=== PATIENT | female | born 1970 | race Caucasian/White ===

== ENCOUNTER 2020-06-19 09:33 | Emergency (ER) | payer OTHER ==
--- NOTE | 2020-06-19 10:12 | TELE ---
HPI Do you have fever,cough or shortness of breath?: Yes - General Reason For Visit: COVID 19 TEST Time Seen by Provider: 06/19/20 10:10 History Source: Patient Exam Limitations: Clinical Condition - History of Present Illness Timing/Duration: unsure Associated Symptoms: reports: denies symptoms 06/19/20 10:10 Patient with past medical history of cataract [facility] for cardiac surgery in 4 days. Patient reports she needs a complete test done before surgery. Denies any symptoms. Denies fever, chills, cough, shortness of breath. Denies any other complaints Review of Systems - Review of Systems Able to Perform ROS?: Yes Constitutional: No: Chills, Fever, Malaise HEENTM: No: Symptoms Reported, See HPI, Eye Pain, Blurred Vision, Tearing, Recent change in vision, Double Vision, Cataracts, Ear Pain, Ocular Prothesis, Ear Discharge, Nose Pain, Nose Congestion, Tinnitus, Nose Bleeding, Hearing Loss, Throat Pain, Throat Swelling, Mouth Pain, Dental Problems, Difficulty Swallowing, Mouth Swelling, Other Respiratory: No: Symptoms reported, See HPI, Cough, Orthopnea, Shortness of Breath, SOB with Exertion, SOB at Rest, Stridor, Wheezing, Productive cough, Hemoptysis, Other Cardiac (ROS): No: Symptoms Reported, See HPI, Chest Pain, Edema, Irregular Heart Rate, Lightheadedness, Palpitations, Syncope, Chest Tightness, Other ABD/GI: No: Symptoms Reported, Nausea, Vomiting All Other Systems: Reviewed and Negative *Physical Exam - Physical Exam General Appearance: Yes: Nourished, Appropriately Dressed. No: Apparent Distress HEENT: positive: Normal ENT Inspection Respiratory/Chest: negative: Respiratory Distress, Accessory Muscle Use Musculoskeletal: positive: Normal Inspection Extremity: positive: Normal Inspection, Normal Range of Motion Integumentary: positive: Normal Color Neurologic: positive: Fully Oriented, Alert, Normal Mood/Affect, Normal Response - Medical Decision Making 06/19/20 10:11 Patient with past medical history of cataract [facility] for cardiac surgery in 4 days. Patient reports she needs a complete test done before surgery. Denies any symptoms. Denies fever, chills, cough, shortness of breath. Denies any other complaints Patient asymptomatic at this time and only wants preop COVID test. COVID test ordered as per patient request and patient will go to [facility] today for testing. Patient stable for discharge Discharge Diagnosis at time of Disposition: Counseled about COVID-19 virus infection - Referrals Follow-up Referral(s): Kaylin Evans MD [Primary Care Provider] - - Patient Instructions - Discharge Disposition: HOME Condition at time of Disposition: Stable
== END 2020-06-19 10:12 | disposition home or self-care (01) ==
LOC: JVIRT 09:33
DX: Z11.59 Encounter for screening for other viral diseases (principal)
CPT/HCPCS: Q3014-GT; U0003

== ENCOUNTER 2020-06-28 12:45 | Emergency (ER) | payer OTHER ==
--- NOTE | 2020-06-28 12:53 | TELE ---
HPI Do you have fever,cough or shortness of breath?: No - General Reason For Visit: COVID History Source: Patient Review of Systems - Review of Systems Constitutional: No: Fever *Physical Exam - Physical Exam Respiratory/Chest: negative: Respiratory Distress Discharge Diagnosis at time of Disposition: Encounter for laboratory testing for COVID-19 virus - Referrals Follow-up Referral(s): Kaylin Evans MD [Primary Care Provider] - - Patient Instructions - Discharge Disposition: HOME Condition at time of Disposition: Stable
== END 2020-06-28 12:53 | disposition home or self-care (01) ==
LOC: JVIRT 12:45
DX: Z11.59 Encounter for screening for other viral diseases (principal); Z01.84 Encounter for antibody response examination
CPT/HCPCS: 36415; 86769; C9803; Q3014-GT; U0003

== ENCOUNTER 2020-08-01 10:35 | Emergency (ER) | payer OTHER | END 2020-08-01 11:02 | disposition home or self-care (01) | LOC: JVIRT 10:35 | DX: Z03.818 Encounter for observation for suspected exposure to other biological agents ruled out (principal) | CPT/HCPCS: C9803; Q3014-GT; U0003 ==

== ENCOUNTER 2020-08-11 13:42 | Emergency (ER) | payer OTHER | END 2020-08-11 15:14 | disposition home or self-care (01) | LOC: JVIRT 13:42 | DX: Z03.818 Encounter for observation for suspected exposure to other biological agents ruled out (principal) | CPT/HCPCS: C9803; Q3014-GT; U0003 ==

== ENCOUNTER 2020-08-31 11:01 | Emergency (ER) | payer OTHER | END 2020-08-31 11:42 | disposition home or self-care (01) | LOC: JVIRT 11:01 | DX: Z11.59 Encounter for screening for other viral diseases (principal) | CPT/HCPCS: C9803; G2012-GT; U0003 ==